=== PATIENT | male | born 1995 | race Caucasian/White ===

== ENCOUNTER 2018-12-14 14:37 | Emergency (ER) | payer OTHER ==
[~2018-12-14] VITALS: Ht 162.6 cm; Wt 63.5 kg
[~2018-12-14 14:37] MED LIST: KEPPRA 500 MG500 MG PO; NOHOMEMEDICATIONS
[2018-12-14] MEDS ORDERED: IBUPROFEN 600600 M1 PO (15:32)
[2018-12-14 15:49] VITALS: BP 135/87
[2018-12-14] MEDS ORDERED: DOXYCYCLINE 10100 MG PO (17:10)
== END 2018-12-14 15:50 | disposition home or self-care (01) ==
LOC: M.ERS 14:37
DX: S62.610A Displaced fracture of proximal phalanx of right index finger, initial encounter for closed fracture (principal); F17.210 Nicotine dependence, cigarettes, uncomplicated; Z88.8 Allergy status to other drugs, medicaments and biological substances; Y04.2XXA Assault by strike against or bumped into by another person, initial encounter; Y92.89 Other specified places as the place of occurrence of the external cause; Y93.89 Activity, other specified; Y99.8 Other external cause status